=== PATIENT | male | born 1995 | race African-American/Black ===

== ENCOUNTER 2020-06-27 20:20 | Emergency (ER) | payer OTHER ==
[~2020-06-27] VITALS: Ht 172.7 cm; Wt 74.8 kg
[2020-06-27 20:27] VITALS: BP 119/75
== END 2020-06-27 21:47 | disposition home or self-care (01) ==
LOC: ER 20:20
DX: S93.401A Sprain of unspecified ligament of right ankle, initial encounter (principal); J45.909 Unspecified asthma, uncomplicated; X50.1XXA Overexertion from prolonged static or awkward postures, initial encounter; Y93.89 Activity, other specified; Y92.89 Other specified places as the place of occurrence of the external cause; Y99.8 Other external cause status